=== PATIENT | female | born 1955 | race Caucasian/White ===

== ENCOUNTER 2023-05-19 06:41 | Day surgery (SDC) | payer OTHER, SELFPAY ==
[2023-05-08 09:27] VITALS: BMI 40.7
[2023-05-08 10:18] LABS: Hematocrit 45.4 % (37.0-47.0); Hemoglobin 15.2 g/dL (12.0-16.0); Mean Corp Hgb Conc. 33.5 g/dL (33.0-37.0); Mean Corpuscular Hgb 31.7 pg (27.0-31.0); Mean Corpuscular Volume 94.6 fL (81.0-99.0); Mean Platelet Volume 10.6 fL (7.4-10.4); Platelet Count 307 10^3/uL (130-400); Red Cell Dist. Width 12.4 % (11.5-14.5); White Blood Cell Count 6.6 10^3/uL (4.8-10.8)
[2023-05-08 10:39] LABS: ALT (SGPT) 50 U/L (0-35); AST (SGOT) 46 U/L (14-36); Albumin 4.3 g/dl (3.5-5.0); Alkaline Phosphatase 50 U/L (38-126); Blood Urea Nitrogen 21 mg/dl (7-17); Calcium 11.1 mg/dl (8.4-10.2); Carbon Dioxide 26 mmol/L (22-30); Chloride 102 mmol/L (98-107); Estimated Creatinine Clearance 72 ml/min; Glucose 108 mg/dl (70-99); Sodium 140 mmol/L (135-145); Total Bilirubin 0.8 mg/dl (0.2-1.3); Total Protein 7.6 g/dl (6.3-8.2); eGFR > 60.00
[2023-05-19] VITALS (10 sets, daily range): BP systolic 117–139; BP diastolic 65–93; BMI 40.7
[2023-05-19] MEDS: NORMOSOL-R 1000 IV (13:17)
[2023-05-19] MEDS: VANCOCIN 300 ML IV (13:17)
[2023-05-19] MEDS: VANCOCIN 300 MG IV (13:17)
--- NOTE | 2023-05-19 15:50 | W.IMMPOSTOP ---
Addendum entered and electronically signed by Travis Ortiz MD 05/20/23 15:10:
Dic# [id number]
Original Note:
Surgical Immed Post Op Note
-
Primary Surgeon: Sujatha
Assisting Surgeon: Angel
Pre-op Diagnosis: RIGHT ovarian cyst
Post-op Diagnosis: RIGHT ovarian cyst
Procedure Performed: Robotic WIL and appendectomy
Anesthesia Type: General
Specimen / Cultures:
1. Appendix
Estimated Blood Loss: 11 cc
Complications: None
Operative Findings:
1. Appendix found to be in close approximation with LEFT ovarian cyst, thin and elongated, no clear connection to cyst
2. Base taken with blue load robotic stapler, mesentery with vessel sealer device
3. Dense close approximation to rectum, decision to abort further dissection
4. See separate operative report by STAIN MAKER for further details
[2023-05-19] MEDS: SUBLIMAZE 25 MCG IV ×4 (15:59→16:31)
[2023-05-19] MEDS: COMPAZINE 5 MG IV (17:16)
[2023-05-19] MEDS: TYLENOL 650 MG PO (17:51)
== END 2023-05-19 18:40 | disposition home or self-care (01) ==
LOC: SDS 06:41
PROVIDERS: ATTENDING PHYSICIAN Obstetrics & Gynecology; FAMILY PHYSICIAN Nurse Practitioner; OTHER PHYSICIAN Obstetrics & Gynecology
DX: N83.201 Unspecified ovarian cyst, right side (principal); K66.0 Peritoneal adhesions (postprocedural) (postinfection); Z90.710 Acquired absence of both cervix and uterus
CPT/HCPCS: 44970; 88304; 36415; 80053; 85027; 93005

== ENCOUNTER → 2023-10-12 17:11 | Outpatient (REF) | payer OTHER, SELFPAY | LOC: WDC 17:11 | PROVIDERS: ATTENDING PHYSICIAN Nurse Practitioner | DX: Z12.31 Encounter for screening mammogram for malignant neoplasm of breast (principal) | CPT/HCPCS: 77063; 77067 ==

== ENCOUNTER → 2024-08-04 10:58 | Outpatient (REF) | payer OTHER, SELFPAY | LOC: RAD 10:58 | PROVIDERS: ATTENDING PHYSICIAN Internal Medicine Endocrinology, Diabetes & Metabolism; FAMILY PHYSICIAN Nurse Practitioner | DX: E21.0 Primary hyperparathyroidism (principal); M81.0 Age-related osteoporosis without current pathological fracture | CPT/HCPCS: 77080 ==

== ENCOUNTER → 2024-12-26 18:12 | Outpatient (REF) | payer OTHER, SELFPAY | LOC: WDC 18:12 | PROVIDERS: ATTENDING PHYSICIAN Nurse Practitioner | DX: Z12.31 Encounter for screening mammogram for malignant neoplasm of breast (principal) | CPT/HCPCS: 77063; 77067 ==